=== PATIENT | male | born 1965 | race Caucasian/White ===

== ENCOUNTER 2016-09-19 21:05 | Inpatient (IN) | payer BC ==
[~2016-09-19] VITALS: Ht 167.6 cm; Wt 59.0 kg
[2016-09-19 21:30] LABS: BASOPHILS # (AUTO) 0.4 /CMM (0.0-0.2); BASOPHILS % (AUTO) 2.7 % (0.0-2.0); DIFF TOTAL % 100 %; EOSINOPHILS # (AUTO) 0.1 /CMM (0.0-0.7); EOSINOPHILS % (AUTO) 0.8 % (0.0-6.0); HEMATOCRIT 44 % (39-51); HEMOGLOBIN 14.9 g/dL (13.5-17.5); LYMPHOCYTES % (AUTO) 13.2 % (20.0-44.0); MEAN CORPUSCULAR HEMOGLOBIN 31 PG (26.0-33.0); MEAN CORPUSCULAR HGB CONC 34 g/dl (31.0-36.0); MEAN CORPUSCULAR VOLUME 91 fL (80-96); MONOCYTES % (AUTO) 6.2 % (2.0-12.0); NEUTROPHILS % (AUTO) 77.1 % (43.0-81.0); PLATELET COUNT (AUTO) 199 /CMM (150-450); RED BLOOD CELL COUNT(AUTO) 4.79 MIL/uL (4.5-6.0); WHITE BLOOD COUNT (AUTO) 15.5 K/uL (4.3-11.0)
[2016-09-19] MEDS ORDERED: ONDANSETRON HCL/PF 4 MG/2 ML VIAL IVP ONE ×2 (21:30→23:00)
[2016-09-19] MEDS ORDERED: IV NS 0.9% 1,000 ML BAG IV ONE (21:30)
[2016-09-19 21:32] LABS: KETONES,URINE Negative (NEGATIVE); LEUKOCYTE ESTERASE ,URINE Negative (NEGATIVE)
[2016-09-19 21:34] LABS: ADD UA MICROSCOPIC YES
[2016-09-19] MEDS ORDERED: IV SET PRIMARY 1 EA INFUS.SET MC ONE ×2 (21:34→22:55)
[2016-09-19] MEDS ORDERED: IV NS 0.9% 1,000 ML ONE (21:34)
[2016-09-19 21:43] LABS: ADD URINE CULTURE NO; WBC,URINE 0-2 /HPF (0-3)
[2016-09-19 21:49] LABS: CALCIUM, SERUM 9.3 mg/dL (8.5-10.1); POTASSIUM 4.1 mmol/L (3.5-5.1)
[2016-09-19 21:55] LABS: ALBUMIN 4.1 g/dL (3.4-5.0); BILIRUBIN,DIRECT 0.2 mg/dL (0.0-0.2); BILIRUBIN,TOTAL 1.2 mg/dL (0.2-1.0); TOTAL PROTEIN, SERUM 6.9 g/dL (6.4-8.2)
[2016-09-19] MEDS ORDERED: HYDROMORPHONE 1 MG/1 ML DISP.SYRIN ONE (22:54)
[2016-09-19] MEDS ORDERED: IV NS 0.9% 50 ML IV ONE (22:55)
[2016-09-19] MEDS ORDERED: PIPERACILLIN /TAZOBACTAM 3.375 G VIAL IV ONE (22:55)
[2016-09-19] MEDS ORDERED: ONDANSETRON HCL/PF 4 MG/2 ML VIAL ONE ×2 (22:55→23:02)
[2016-09-19] MEDS ORDERED: PIPERACILLIN /TAZOBACTAM 3.375 G in IV D5W 50 ML IV ONE (23:00)
[2016-09-19] MEDS ORDERED: HYDROMORPHONE INJ 2 MG/ML DISP.SYRIN IV ONE (23:00)
[2016-09-19 23:30] VITALS: BP 140/83
[2016-09-20] VITALS: BP 140/83
[2016-09-20] MEDS ORDERED: LISI-603 PO (01:10)
[2016-09-20] MEDS ORDERED: Z GUARD REMEDY 2 OZ OINT TP PRN (01:30)
[2016-09-20] MEDS ORDERED: ZOLPIDEM TARTRATE 5 MG TABLET PO PRN (01:30)
[2016-09-20] MEDS ORDERED: MAG HYDROX/AL HYDROX/SIMETH 30 ML UDC PO PRN (01:30)
[2016-09-20] MEDS ORDERED: MAGNESIUM HYDROXIDE 30 ML UDC PO PRN (01:30)
[2016-09-20] MEDS ORDERED: ONDANSETRON HCL/PF 4 MG/2 ML VIAL IVP PRN (01:30)
[2016-09-20] MEDS ORDERED: ACETAMINOPHEN 325 MG TABLET PO PRN (01:30)
[2016-09-20] MEDS ORDERED: MORPHINE SULFATE INJ 2 MG/ML DISP.SYRIN IV PRN (01:30)
[2016-09-20 07:02] LABS: INR 0.97 (0.87-1.13); PROTHROMBIN TIME 10.5 SECS (9.5-12.7)
[2016-09-20 08:00] VITALS: BP 163/90
[2016-09-20] MEDS: LISINOPRIL (20MG) 20 MG TABLET PO SCH (09:24)
[2016-09-20] MEDS: HYDROCODONE/APAP 5/325MG 1 EACH TABLET PO PRN ×2 (09:35→15:28)
[2016-09-20] MEDS ORDERED: IV SET PRIMARY PUMP SET 1 EA INFUS.SET MC ONE (12:14)
[2016-09-20] MEDS: IV D5/ 0.9% NACL 1,000 ML IV PRN ×2 (12:17→23:28)
[2016-09-20] MEDS ORDERED: FEE PK DOSING 1 MIN EA MC ONE (12:19)
[2016-09-20] MEDS ORDERED: SECONDARY IV SET 1 EA INFUS.SET MC ONE (12:55)
[2016-09-20] MEDS: VANCOMYCIN 0.75 GM in IV D5W 250 ML IV SCH ×2 (12:56→21:37)
[2016-09-20] MEDS: PIPERACILLIN /TAZOBACTAM 3.375 G in IV D5W 50 ML IV SCH ×3 (12:56→23:28)
[2016-09-20 16:00] VITALS: BP 128/73
[2016-09-20 20:00] VITALS: BP 124/75
[2016-09-20 22:00] VITALS: BP 121/77
[2016-09-21] MEDS: VANCOMYCIN 0.75 GM in IV D5W 250 ML IV SCH ×3 (04:27→21:40)
[2016-09-21] MEDS: PIPERACILLIN /TAZOBACTAM 3.375 G in IV D5W 50 ML IV SCH ×4 (05:32→23:30)
[2016-09-21 06:43] LABS: BASOPHILS % (AUTO) 0.5 % (0.0-2.0); DIFF TOTAL % 100 %; EOSINOPHILS # (AUTO) 0.1 /CMM (0.0-0.7); EOSINOPHILS % (AUTO) 1.4 % (0.0-6.0); HEMATOCRIT 38 % (39-51); LYMPHOCYTES # (AUTO) 1.6 /CMM (0.8-4.8); LYMPHOCYTES % (AUTO) 19.3 % (20.0-44.0); MEAN CORPUSCULAR HEMOGLOBIN 31 PG (26.0-33.0); MEAN CORPUSCULAR HGB CONC 34 g/dl (31.0-36.0); MEAN CORPUSCULAR VOLUME 93 fL (80-96); MONOCYTES # (AUTO) 0.6 /CMM (0.1-1.30); MONOCYTES % (AUTO) 7.5 % (2.0-12.0); NEUTROPHILS # (AUTO) 5.9 /CMM (1.8-8.9); NEUTROPHILS % (AUTO) 71.3 % (43.0-81.0); PLATELET COUNT (AUTO) 172 /CMM (150-450); RED BLOOD CELL COUNT(AUTO) 4.15 MIL/uL (4.5-6.0); WHITE BLOOD COUNT (AUTO) 8.3 K/uL (4.3-11.0)
[2016-09-21 07:08] LABS: CALCIUM, SERUM 8.5 mg/dL (8.5-10.1); CREATININE 1.1 mg/dL (0.6-1.3); PHOSPHORUS 3.6 mg/dL (2.5-4.9); POTASSIUM 4.4 mmol/L (3.5-5.1)
[2016-09-21 08:00] VITALS: BP 120/59
[2016-09-21] MEDS: LISINOPRIL (20MG) 20 MG TABLET PO SCH (08:34)
[2016-09-21] MEDS: IV D5/ 0.9% NACL 1,000 ML IV PRN ×2 (11:02→23:30)
[2016-09-21] MEDS: HYDROCODONE/APAP 5/325MG 1 EACH TABLET PO PRN ×2 (15:46→23:36)
[2016-09-21 16:00] VITALS: BP 125/70
[2016-09-21 20:00] VITALS: BP 133/82
[2016-09-21 20:22] VITALS: BP 133/82
[2016-09-21] MEDS ORDERED: IV D5/ 0.9% NACL 1,000 ML IV ONE (23:22)
[2016-09-22] MEDS: VANCOMYCIN 0.75 GM in IV D5W 250 ML IV SCH (05:30)
[2016-09-22 06:24] LABS: BASOPHILS % (AUTO) 0.5 % (0.0-2.0); DIFF TOTAL % 100 %; EOSINOPHILS # (AUTO) 0.2 /CMM (0.0-0.7); EOSINOPHILS % (AUTO) 3.2 % (0.0-6.0); HEMATOCRIT 39 % (39-51); LYMPHOCYTES # (AUTO) 1.8 /CMM (0.8-4.8); MEAN CORPUSCULAR HEMOGLOBIN 31 PG (26.0-33.0); MEAN CORPUSCULAR HGB CONC 33 g/dl (31.0-36.0); MEAN CORPUSCULAR VOLUME 93 fL (80-96); MONOCYTES # (AUTO) 0.5 /CMM (0.1-1.30); MONOCYTES % (AUTO) 8.3 % (2.0-12.0); NEUTROPHILS # (AUTO) 3.9 /CMM (1.8-8.9); PLATELET COUNT (AUTO) 186 /CMM (150-450); RED BLOOD CELL COUNT(AUTO) 4.26 MIL/uL (4.5-6.0); WHITE BLOOD COUNT (AUTO) 6.4 K/uL (4.3-11.0)
[2016-09-22 06:36] LABS: CALCIUM, SERUM 8.6 mg/dL (8.5-10.1); CREATININE 1.1 mg/dL (0.6-1.3); PHOSPHORUS 4.5 mg/dL (2.5-4.9); POTASSIUM 3.7 mmol/L (3.5-5.1)
[2016-09-22] MEDS: PIPERACILLIN /TAZOBACTAM 3.375 G in IV D5W 50 ML IV SCH (06:55)
[2016-09-22 08:00] VITALS: BP 122/68
[2016-09-22 08:21] VITALS: BP 122/68
[2016-09-22] MEDS: LISINOPRIL (20MG) 20 MG TABLET PO SCH (08:21)
[2016-09-22] MEDS ORDERED: METR500T PO (09:14)
[2016-09-22] MEDS ORDERED: CIPR-262 PO (09:14)
== END 2016-09-22 11:25 | disposition home or self-care (01) | DRG 394 ==
LOC: ER 21:09 → MEDSG2 23:38
PROVIDERS: ADMIT Family Medicine; ATTEND Family Medicine
DX: K35.80 Unspecified acute appendicitis (principal); R17 Unspecified jaundice; I10 Essential (primary) hypertension; K40.20 Bilateral inguinal hernia, without obstruction or gangrene, not specified as recurrent; D64.9 Anemia, unspecified; D72.829 Elevated white blood cell count, unspecified
CPT/HCPCS: 36415; 71010-TC; 80048-TC; 80061-TC; 80076-TC; 80202-TC; 81000-TC; 83605-TC; 83690-TC; 83735-TC; 84100-TC; 85025-TC; 85610-TC; 85730-TC; 87040-TC; 87081-TC; A4216; A4606; J1170; J2270; J2405; J2543; J3370; J7030; J7042; J7060; Z7610

== ENCOUNTER 2022-12-29 08:06 | Inpatient (IN) | payer BC ==
[~2022-12-29] VITALS: Ht 167.6 cm; Wt 59.0 kg
[~2022-12-29 08:06] MED LIST: CIPR-262 PO; LISI20TA30 PO; METR500T PO
[2022-12-29 09:09] LABS: BASOPHILS # (AUTO) 0.1 K/uL (0.0-0.2); BASOPHILS % (AUTO) 0.3 % (0.0-2.0); HEMATOCRIT 47 % (39-51); HEMOGLOBIN 15.6 g/dL (13.5-17.5); LYMPHOCYTES # (AUTO) 1.3 K/uL (0.8-4.8); MEAN CORPUSCULAR HGB CONC 33 g/dl (31.0-36.0); MEAN CORPUSCULAR VOLUME 98 fL (80-96); MONOCYTES # (AUTO) 1.6 K/uL (0.1-1.30); NEUTROPHILS # (AUTO) 19.5 K/uL (1.8-8.9); NEUTROPHILS % (AUTO) 86.7 % (43.0-81.0); PLATELET COUNT (AUTO) 273 K/uL (150-450); RED BLOOD CELL COUNT(AUTO) 4.86 MIL/uL (4.5-6.0); WHITE BLOOD COUNT (AUTO) 22.4 K/uL (4.3-11.0)
[2022-12-29 09:34] LABS: CALCIUM, SERUM 10.4 mg/dL (8.5-10.1); CREATININE 1.4 mg/dL (0.6-1.3); POTASSIUM 4.3 mmol/L (3.5-5.1)
[2022-12-29 09:35] LABS: BILIRUBIN,URINE NEGATIVE (NEGATIVE); COLOR,URINE YELLOW (YELLOW); LEUKOCYTE ESTERASE ,URINE NEGATIVE (NEGATIVE); NITRITE, URINE NEGATIVE (NEGATIVE); PROTEIN,URINE NEGATIVE (NEGATIVE); UGLUCOSE NEGATIVE (NEGATIVE); UROBILINOGEN,URINE 0.2 EU/dL (0.2)
[2022-12-29 09:40] LABS: ALBUMIN 4.3 g/dL (3.4-5.0); BILIRUBIN,DIRECT 0.2 mg/dL (0.0-0.2); BILIRUBIN,TOTAL 0.9 mg/dL (0.2-1.0); TOTAL PROTEIN, SERUM 7.5 g/dL (6.4-8.2)
[2022-12-29] MEDS ORDERED: PIPERACILLIN /TAZOBACTAM 3.375 G in IV D5W 50 ML IV ONE (10:00)
[2022-12-29] MEDS ORDERED: IV NS 0.9% 1,000 ML BAG IV ONE (10:00)
[2022-12-29] MEDS ORDERED: MORPHINE SULFATE INJ 2 MG/ML DISP.SYRIN IV ONE (10:00)
[2022-12-29] MEDS ORDERED: ONDANSETRON HCL/PF 4 MG/2 ML VIAL IVP ONE (10:00)
--- NOTE | 2022-12-29 10:00 | NUR ---
BIBS FOR ABD PAIN. A/O X 3, ABLE TO MAKE NEEDS KNOWN, TOLERATING WELL ON ROOM AIR.
[2022-12-29 10:01] LABS: BACTERIA,URINE Rare /HPF (None Seen); SQUAMOUS EPITHELIAL CELL,UR Few /HPF (None Seen); WBC,URINE 0-2 /HPF (0-3)
[2022-12-29] MEDS ORDERED: ONDANSETRON HCL/PF 4 MG/2 ML VIAL ONE (10:15)
[2022-12-29] MEDS ORDERED: MORPHINE SULFATE INJ 4 MG/ML DISP.SYRIN ONE (10:15)
--- NOTE | 2022-12-29 10:30 | NUR ---
MOVE SHEET SUBMITTED.
[2022-12-29] MEDS ORDERED: LISI1TAB55 PO (10:46)
--- NOTE | 2022-12-29 11:01 | NUR ---
COVID SWAB OBTAINED
--- NOTE | 2022-12-29 12:00 | NUR ---
Katerin villeda in ED - 12/29/22 at 1452 by MESSI BIBS FOR ABD PAIN. A/O X 3, ABLE TO MAKE NEEDS KNOWN, TOLERATING WELL ON ROOM AIR.
--- NOTE | 2022-12-29 12:08 | NUR ---
[facility] DISTRIBUTOR SALES CONSULTANT NOTIFIED
--- NOTE | 2022-12-29 12:09 | NUR ---
SURGERY LINE WELDER ON PHONE WITH OKSANA RAMOS
[2022-12-29] MEDS ORDERED: EMTR1TAB17 PO (12:20)
[2022-12-29] MEDS ORDERED: ANESTHESIA TRAY IN PYXIS 1 EA TRAY MC ONE (14:24)
[2022-12-29] MEDS ORDERED: LIDOCAINE 1% INJ 50 ML MDV IJ ONE (14:25)
[2022-12-29] MEDS ORDERED: BUPIVACAINE MPF 0.5% W/EPI INJ 30 ML VIAL ONE (14:25)
[2022-12-29] MEDS ORDERED: FENTANYL PF 100MCG/2ML AMPUL ONE ×2 (14:48→14:49)
[2022-12-29] MEDS ORDERED: MIDAZOLAM HCL 2 MG/2ML VIAL ONE (14:49)
--- NOTE | 2022-12-29 14:51 | NUR ---
GOT BED 312-1 ADMITTING INFORMED.
--- NOTE | 2022-12-29 15:01 | NUR ---
REPORT GIVEN TO ASTRID BUNN
--- NOTE | 2022-12-29 15:02 | NUR ---
PATIENT TAKEN TO OPERATING ROOM BY OR TECH, PATIENT TO BE TRANSPORTED DIRECTLY TO [facility] AFTER SURGERY.
[2022-12-29] MEDS ORDERED: HYDROMORPHONE 1 MG/1 ML DISP.SYRIN ONE (16:07)
[2022-12-29] MEDS ORDERED: MAGNESIUM HYDROXIDE 30 ML UDC PO PRN (16:30)
[2022-12-29] MEDS ORDERED: Z GUARD REMEDY 4 OZ OINT TP PRN (16:30)
[2022-12-29] MEDS ORDERED: MAG HYDROX/AL HYDROX/SIMETH 30 ML UDC PO PRN (16:30)
[2022-12-29] MEDS ORDERED: ONDANSETRON HCL/PF 4 MG/2 ML VIAL IVP PRN (16:30)
[2022-12-29] MEDS ORDERED: ZOLPIDEM TARTRATE 5 MG TABLET PO PRN (16:30)
[2022-12-29] MEDS ORDERED: ACETAMINOPHEN 325 MG TABLET PO PRN (16:30)
[2022-12-29] MEDS ORDERED: MORPHINE SULFATE INJ 2 MG/ML DISP.SYRIN IV PRN (16:30)
[2022-12-29] MEDS ORDERED: HYDROCODONE/APAP 5/325MG TABLET PO PRN (16:30)
--- NOTE | 2022-12-29 16:55 | NUR ---
ADMITTING NOTES ADMITTED 57 YO MALE PT VIA BED FROM SURGERY ACCOMPANIED BY RN AND TRANSPORTER. PT S/P LAP APPENDECTOMY BY DR GODOY. PT AWAKE AND ALERT ORIENTED X 4 AND ABLE TO MAKE NEEDS KNOWN. ON ROOM AIR AND TOLERATING WELL. PAIN SCALE 3/10, REFUSED PAIN MEDS AT THIS TIME. PT REFUSED BODY CHECK AT THIS TIME, SURGICAL INCISION NOTED ON ABDOMEN NOTED WITH DRY AND INTACT DRESSING. IV ACCESS ON RAC GAUGE 20 PATENT, INTACT AND INFUSING D5 1/2 NS 1L @ 125 ML/HR. SAFETY MEASURES INITIATED: BED LOCKED AND IN LOWEST POSITION, SIDE RAILS UP X 2. CALL LIGHT IN EASY REACH AND WILL MONITOR PT ACCORDINGLY.
[2022-12-29] MEDS: IV D5/0.45 NACL 1,000 ML IV PRN (17:35)
[2022-12-29] MEDS: ZOSYN IVPB 3.375 G in IV D5W 50ml IV SCH ×2 (18:12→23:01)
[2022-12-29] MEDS: CELECOXIB 100 MG CAPSULE PO SCH (18:14)
--- NOTE | 2022-12-29 18:22 | NUR ---
RN NOTES: INFORMED PHARMACIST ANTONIO THAT PER RN FROM SURGERY ENDORSEMENT THAT TYLENOL, NEURONTIN AND CELEBREX INITIAL DOSE WILL BE AT 1800. PER PHARMACIST HE MESSAGED DR GODOY AND WILL WAIT FOR HIS ORDERS.
--- NOTE | 2022-12-29 19:00 | NUR ---
MS RN CLOSING NOTES: PT IN BED AWAKE, ALERT AND ORIENTED X 4 AND ABLE TO MAKE NEEDS KNOWN. DENIES PAIN AT THIS TIME. IV ACCESS ON RAC GAUGE 20 PATENT INTACT AND INFUSING D5 1/2 NS @125 ML/HR. PT HAD HIS DINNER AND TOLERATED WELL. SAFETY MEASURES MAINTAINED. BED LOCKED AND IN LOWEST POSITION SIDE RAILS UP X 2. CALL LIGHT IN EASY REACH AND WILL MONITOR PT, ENDORSED TO PROPERTY CLAIM REP RN FOR CONTINUITY OF CARE.
--- NOTE | 2022-12-29 19:30 | NUR ---
MS RN OPENING NOTE RECEIVED PATIENT IN BED, AWAKE, ALERT AND ORIENTED X4. ABLE TO COMMUNICATE NEEDS WITH THE STAFFS. AFEBRILE AND NOT IN ANY FORM OF ACUTE DISTRESS. S/P LAP APPENDECTOMY, NO C/O PAIN OR DISCOMFORT AT THIS TIME. WITH IV ACCESS ON RAC 20G RUNNING WITH 1/2 NS AT 125ML/HR. SAFETY MEASURES IN PLACE. KEPT BED IN LOCKED AND IN LOW POSITION. SIDE RAILS UP X2. ADVISED TO USE THE CALL LIGHT WHEN IN NEED OF ASSISTANCE.
[2022-12-29 20:00] VITALS: BP 110/72
[2022-12-29] MEDS: ACETAMINOPHEN 325 MG TABLET PO SCH (20:56)
[2022-12-29] MEDS: GABAPENTIN 100 MG CAPSULE PO SCH (20:56)
[2022-12-30] MEDS: IV D5/0.45 NACL 1,000 ML IV PRN ×2 (03:46→16:11)
[2022-12-30] MEDS: GABAPENTIN 100 MG CAPSULE PO SCH ×3 (04:06→20:38)
[2022-12-30] MEDS: ACETAMINOPHEN 325 MG TABLET PO SCH ×3 (04:06→20:38)
[2022-12-30] MEDS: ZOSYN IVPB 3.375 G in IV D5W 50ml IV SCH ×4 (05:23→23:19)
[2022-12-30] MEDS: CELECOXIB 100 MG CAPSULE PO SCH ×2 (05:23→17:24)
[2022-12-30 05:58] LABS: BASOPHILS % (AUTO) 0.2 % (0.0-2.0); EOSINOPHILS % (AUTO) 0.1 % (0.0-6.0); HEMATOCRIT 38 % (39-51); HEMOGLOBIN 12.7 g/dL (13.5-17.5); LYMPHOCYTES # (AUTO) 1.5 K/uL (0.8-4.8); LYMPHOCYTES % (AUTO) 10.4 % (20.0-44.0); MEAN CORPUSCULAR HGB CONC 33 g/dl (31.0-36.0); MEAN CORPUSCULAR VOLUME 98 fL (80-96); MONOCYTES # (AUTO) 1.3 K/uL (0.1-1.30); MONOCYTES % (AUTO) 8.8 % (2.0-12.0); NEUTROPHILS # (AUTO) 11.7 K/uL (1.8-8.9); NEUTROPHILS % (AUTO) 80.5 % (43.0-81.0); PLATELET COUNT (AUTO) 205 K/uL (150-450); WHITE BLOOD COUNT (AUTO) 14.5 K/uL (4.3-11.0)
[2022-12-30 06:09] LABS: CALCIUM, SERUM 9.1 mg/dL (8.5-10.1); CREATININE 1.4 mg/dL (0.6-1.3); MAGNESIUM 1.9 mg/dL (1.8-2.4); PHOSPHORUS 3.4 mg/dL (2.5-4.9); POTASSIUM 4.5 mmol/L (3.5-5.1)
--- NOTE | 2022-12-30 06:25 | NUR ---
MS RN CLOSING NOTE PATIENT IN BED, ASLEEP BUT EASY TO AROUSE AND RESPONSIVE. ALERT AND ORIENTED X4. ABLE TO COMMUNICATE NEEDS WITH THE STAFFS. AFEBRILE AND NOT IN ANY FORM OF ACUTE DISTRESS. S/P LAP APPENDECTOMY, NO C/O PAIN OR DISCOMFORT THROUGHOUT THE SHIFT. WITH IV ACCESS ON RAC 20G RUNNING WITH 1/2 NS AT 125ML/HR. MEDICATED ORDERED. CONTINUOUS ON IV ATB, MONITORED FOR ANY ADVERSE REACTION. SAFETY MEASURES IN PLACE. KEPT BED IN LOCKED AND IN LOW POSITION. SIDE RAILS UP X2. ADVISED TO USE THE CALL LIGHT WHEN IN NEED OF ASSISTANCE. ALL NURSING NEEDS ATTENDED. ENDORSED TO INCOMING SHIFT FOR CONTINUITY OF CARE.
[2022-12-30 07:00] VITALS: BP 93/57
--- NOTE | 2022-12-30 07:08 | NUR ---
MS RN OPENING NOTE RECEIVED PATIENT IN BED, AWAKE AND RESPONSIVE. ALERT AND ORIENTED X4. ABLE TO COMMUNICATE NEEDS WITH THE STAFFS. AFEBRILE AND NOT IN ANY FORM OF ACUTE DISTRESS. S/P LAP APPENDECTOMY, NO C/O PAIN OR DISCOMFORT. WITH IV ACCESS ON RAC 20G RUNNING WITH D5 1/2 NS AT 125ML/HR. ON ROOM AIR TOLERATING WELL. CONTINUOUS ON IV ATB, MONITORED FOR ANY ADVERSE REACTION. SAFETY MEASURES IN PLACE. KEPT BED IN LOCKED AND IN LOW POSITION. SIDE RAILS UP X2. ADVISED TO USE THE CALL LIGHT WHEN IN NEED OF ASSISTANCE. ALL NURSING NEEDS ATTENDED. WILL ADMINISTER SCHEDULED MEDS ORDERED. WILL CONTINUE TO MONITOR.
[2022-12-30] MEDS: PANTOPRAZOLE 40 MG VIAL IV SCH (08:35)
[2022-12-30] MEDS ORDERED: GABAPENTIN 100 MG CAPSULE PO SCH (09:00)
[2022-12-30] MEDS ORDERED: DESCOVY PO SCH (16:00)
[2022-12-30 16:16] VITALS: BP 99/54
--- NOTE | 2022-12-30 18:35 | NUR ---
MS RN CLOSING NOTE PATIENT IN BED, RESTING WELL, AWAKE AND RESPONSIVE. ALERT AND ORIENTED X4. ABLE TO COMMUNICATE NEEDS WITH THE STAFFS. AFEBRILE AND NOT IN ANY FORM OF ACUTE DISTRESS. S/P LAP APPENDECTOMY, NO C/O PAIN OR DISCOMFORT. WITH IV ACCESS ON RAC 20G RUNNING WITH D5 1/2 NS AT 125ML/HR. ON ROOM AIR TOLERATING WELL. CONTINUOUS ON IV ATB, MONITORED FOR ANY ADVERSE REACTION. SAFETY MEASURES IN PLACE. KEPT BED IN LOCKED AND IN LOW POSITION. SIDE RAILS UP X2. ADVISED TO USE THE CALL LIGHT WHEN IN NEED OF ASSISTANCE. ALL NURSING NEEDS ATTENDED. ALL MEDS ADMINISTERED, WILL ENDORSE TO NEXT SHIFT.
--- NOTE | 2022-12-30 19:30 | NUR ---
MS RN OPENING NOTE RECEIVED PATIENT IN BED, AWAKE, ALERT AND ORIENTED X4. ABLE TO MAKE NEEDS KNOWN. AFEBRILE AND NOT IN ANY FORM OF ACUTE DISTRESS. BREATHING EVEN AND NON LABORED. WITH IV ACCESS ON RAC 20G RUNNING WITH 1/2 NS AT 125ML/HR. SAFETY MEASURES IN PLACE. KEPT BED IN LOCKED AND IN LOW POSITION. SIDE RAILS UP X2. ADVISED TO USE THE CALL LIGHT WHEN IN NEED OF ASSISTANCE.
[2022-12-30 20:00] VITALS: BP 97/61
--- NOTE | 2022-12-30 20:30 | NUR ---
RN NOTES Dr. Delacruz called and asked if the patient is eating. Informed him that patient finished his dinner 100%, gave an order to stop the IV fluid, order noted and carried out
[2022-12-31] MEDS: ACETAMINOPHEN 325 MG TABLET PO SCH ×2 (04:14→13:08)
[2022-12-31] MEDS: GABAPENTIN 100 MG CAPSULE PO SCH ×2 (04:14→13:08)
[2022-12-31] MEDS: ZOSYN IVPB 3.375 G in IV D5W 50ml IV SCH ×2 (05:04→12:09)
[2022-12-31] MEDS: CELECOXIB 100 MG CAPSULE PO SCH (05:05)
[2022-12-31 05:58] LABS: BASOPHILS % (AUTO) 0.5 % (0.0-2.0); EOSINOPHILS % (AUTO) 1.6 % (0.0-6.0); HEMATOCRIT 37 % (39-51); HEMOGLOBIN 12.5 g/dL (13.5-17.5); LYMPHOCYTES # (AUTO) 1.5 K/uL (0.8-4.8); LYMPHOCYTES % (AUTO) 16.3 % (20.0-44.0); MEAN CORPUSCULAR HGB CONC 34 g/dl (31.0-36.0); MEAN CORPUSCULAR VOLUME 97 fL (80-96); MONOCYTES # (AUTO) 0.8 K/uL (0.1-1.30); MONOCYTES % (AUTO) 9.1 % (2.0-12.0); NEUTROPHILS # (AUTO) 6.6 K/uL (1.8-8.9); NEUTROPHILS % (AUTO) 72.5 % (43.0-81.0); PLATELET COUNT (AUTO) 185 K/uL (150-450); WHITE BLOOD COUNT (AUTO) 9.1 K/uL (4.3-11.0)
[2022-12-31 06:22] LABS: CALCIUM, SERUM 8.9 mg/dL (8.5-10.1); CREATININE 1.4 mg/dL (0.6-1.3); MAGNESIUM 2.1 mg/dL (1.8-2.4)
--- NOTE | 2022-12-31 06:22 | NUR ---
MS RN CLOSING NOTE PATIENT IN BED, ASLEEP BUT EASY TO AROUSE AND RESPONSIVE. ALERT AND ORIENTED X4. ABLE TO COMMUNICATE NEEDS WITH THE STAFFS. AFEBRILE AND NOT IN ANY FORM OF ACUTE DISTRESS. NO C/O PAIN OR DISCOMFORT THROUGHOUT THE SHIFT. WITH IV ACCESS ON RAC 20G-SL. MEDICATED ORDERED. CONTINUOUS ON IV ATB, MONITORED FOR ANY ADVERSE REACTION. SAFETY MEASURES IN PLACE. KEPT BED IN LOCKED AND IN LOW POSITION. SIDE RAILS UP X2. ADVISED TO USE THE CALL LIGHT WHEN IN NEED OF ASSISTANCE. ALL NURSING NEEDS ATTENDED. ENDORSED TO INCOMING SHIFT FOR CONTINUITY OF CARE.
[2022-12-31 07:00] VITALS: BP 129/78
--- NOTE | 2022-12-31 07:30 | NUR ---
MS RN OPENING NOTE RECEIVED PATIENT IN BED, AWAKE AND RESPONSIVE. ALERT AND ORIENTED X4. ABLE TO COMMUNICATE NEEDS WITH THE STAFFS. AFEBRILE AND NOT IN ANY FORM OF ACUTE DISTRESS. S/P LAP APPENDECTOMY 12/29, NO C/O PAIN OR DISCOMFORT. WITH IV ACCESS ON RAC 20G SL. ON ROOM AIR TOLERATING WELL. CONTINUOUS ON IV ATB, MONITORED FOR ANY ADVERSE REACTION. SAFETY MEASURES IN PLACE. KEPT BED IN LOCKED AND IN LOW POSITION. SIDE RAILS UP X2. ADVISED TO USE THE CALL LIGHT WHEN IN NEED OF ASSISTANCE. ALL NURSING NEEDS ATTENDED. WILL ADMINISTER SCHEDULED MEDS ORDERED. WILL CONTINUE TO MONITOR.
[2022-12-31] MEDS: PANTOPRAZOLE 40 MG VIAL IV SCH (08:28)
[2022-12-31] MEDS ORDERED: CELE100C PO (11:44)
--- NOTE | 2022-12-31 13:56 | NUR ---
MS SUPERVISOR SHOP NOTES PT DISCHARGED IN STABLE CONDITION AT 1355. REMOVED IV ACCESS, ALL MEDS GIVEN. PT BELONGINGS CHECKED AND RECONCILED. SKIN ASSESSMENT DONE, INTACT. HEALTH TEACHINGS AND DISCHARGE INSTRUCTIONS GIVEN. PT VERBALIZED UNDERSTANDING. INSTRUCTED TO GO ER INCASE OF EMERGENCY. FOLLOW UP WITH PCP. FOLLOW UP APPT W/ DR. GODOY ON JANUARY 03Saturday. ACCOMPANIED PT TO THE LOBBY, LEFT AMBULATORY. CHARGE NURSE AWARE.
[2023-01-01] MEDS ORDERED: PANTOPRAZOLE 40 MG TABLET.DR PO SCH (09:00)
== END 2022-12-31 13:45 | disposition home or self-care (01) | DRG 341 ==
LOC: ER 08:13 → MED 15:11
PROVIDERS: ADMIT Student in an Organized Health Care Education/Training Program; ATTEND Student in an Organized Health Care Education/Training Program
PROC: 0DTJ4ZZ Resection of Appendix, Percutaneous Endoscopic Approach (ICD-10-PCS; principal; 2022-12-29)
DX: K35.891 Other acute appendicitis without perforation, with gangrene (principal); N17.0 Acute kidney failure with tubular necrosis; E87.1 Hypo-osmolality and hyponatremia; K66.0 Peritoneal adhesions (postprocedural) (postinfection); Z20.822 Contact with and (suspected) exposure to COVID-19; Z98.890 Other specified postprocedural states; I10 Essential (primary) hypertension; Z80.7 Family history of other malignant neoplasms of lymphoid, hematopoietic and related tissues; Z82.49 Family history of ischemic heart disease and other diseases of the circulatory system; K57.30 Diverticulosis of large intestine without perforation or abscess without bleeding
CPT/HCPCS: 36415; 80048-TC; 80076-TC; 81001; 83690-TC; 83735-TC; 84100-TC; 85025-TC; 86850-TC; 87040-TC; 87081-TC; A4223; C9113; C9803; G0378; J0330; J0690; J1100; J1170; J2250; J2270; J2405; J2543; J2704; J3010; J3490; J7030; J7060